=== PATIENT | male | born 1945 | race Caucasian/White ===

== ENCOUNTER → 2017-11-09 | Emergency (ER) | payer OTHER ==
[~2017-11-09] VITALS: Ht 165.1 cm; Wt 71.7 kg
[~2017-11-09] MED LIST: CIPRO250 MG PO; GLIMEPIRIDE2 MG; GLIMEPIRIDE4 MG; GLUCOPHAGE XR750 MG; METHENAMINE HIPP1 GM
== END | disposition home or self-care (01) ==
LOC: ER 08:50
DX: R31.9 Hematuria, unspecified (principal); R10.11 Right upper quadrant pain; E11.65 Type 2 diabetes mellitus with hyperglycemia

== ENCOUNTER 2019-12-03 14:25 | Outpatient (CLI) | payer OTHER | END 2019-12-03 14:29 | disposition home or self-care (01) | LOC: LAB 14:25 | DX: R97.20 Elevated prostate specific antigen [PSA] (principal) ==

== ENCOUNTER 2020-07-13 11:49 | Emergency (ER) | payer OTHER ==
[~2020-07-13] VITALS: Ht 180.3 cm; Wt 71.7 kg
[2020-07-13] MEDS ORDERED: LEVOTHYROXINE25 MCG (11:55)
[2020-07-13] MEDS ORDERED: JANUMET 50-1,01 EACH (11:55)
== END 2020-07-13 18:00 | disposition home or self-care (01) ==
LOC: ER 11:49
DX: B34.9 Viral infection, unspecified (principal); N39.0 Urinary tract infection, site not specified; R10.31 Right lower quadrant pain; R50.9 Fever, unspecified; B96.5 Pseudomonas (aeruginosa) (mallei) (pseudomallei) as the cause of diseases classified elsewhere; Z03.818 Encounter for observation for suspected exposure to other biological agents ruled out; R53.1 Weakness

== ENCOUNTER 2022-06-16 13:54 | Outpatient (CLI) | payer OTHER ==
[~2022-06-16 13:54] MED LIST changes: +JANUMET 50-1,01 EACH; +LEVOTHYROXINE25 MCG
== END 2022-06-16 14:24 | disposition home or self-care (01) ==
LOC: LAB 13:54
PROVIDERS: ATTEND Urology
DX: R97.20 Elevated prostate specific antigen [PSA] (principal)

== ENCOUNTER 2022-10-25 07:09 | Outpatient (CLI) | payer OTHER | END 2022-10-25 07:26 | disposition home or self-care (01) | LOC: SONOGRAMA 07:09 | PROVIDERS: ATTEND Urology | DX: C61 Malignant neoplasm of prostate (principal); D29.1 Benign neoplasm of prostate; N41.1 Chronic prostatitis; R97.20 Elevated prostate specific antigen [PSA] ==

== ENCOUNTER 2022-11-15 07:22 | Outpatient (CLI) | payer OTHER | END 2022-11-15 07:24 | disposition home or self-care (01) | LOC: NUCLEAR 07:22 | PROVIDERS: ATTEND Urology | DX: C61 Malignant neoplasm of prostate (principal); R97.20 Elevated prostate specific antigen [PSA]; N20.0 Calculus of kidney; N13.4 Hydroureter | CPT/HCPCS: 78306; 78803; A9503 ==

== ENCOUNTER 2022-11-23 07:02 | Outpatient (CLI) | payer OTHER | END 2022-11-23 07:17 | disposition home or self-care (01) | LOC: TOM 07:02 | PROVIDERS: ATTEND Urology | DX: C61 Malignant neoplasm of prostate (principal); R97.20 Elevated prostate specific antigen [PSA]; N20.0 Calculus of kidney; N13.4 Hydroureter ==